=== PATIENT | female | born 1995 | race African-American/Black ===

== ENCOUNTER 2019-02-28 23:10 | Emergency (ER) | payer BC, MEDICAID ==
[~2019-02-28] VITALS: Ht 165.1 cm; Wt 58.6 kg
[2019-02-28] MEDS: MORPHINE SULFATE 4 MG/ML CPJ (NOT FOR IM USE) IV ONE (23:58)
[2019-03-01] MEDS: ONDANSETRON HCL 4MG/2ML INJ IV ONE ×2 (00:11→03:04)
[2019-03-01] MEDS: PROPOFOL 200MG/20ML VIAL IV ONE (01:04)
[2019-03-01] MEDS: KETAMINE HCL 50 MG/ML 10ML IV ONE (01:04)
[2019-03-01 04:12] VITALS: BP 121/79
== END 2019-03-01 04:15 | disposition home or self-care (01) ==
LOC: ER 23:10
DX: S43.084A Other dislocation of right shoulder joint, initial encounter (principal); V49.49XA Driver injured in collision with other motor vehicles in traffic accident, initial encounter; Y93.89 Activity, other specified; Y92.89 Other specified places as the place of occurrence of the external cause; Y99.8 Other external cause status
CPT/HCPCS: 23650; 71045; 73020; 73030; 81025; 96374; 96375; 96376; 99152; 99285; J2270; J2405; J2704; J3490